=== PATIENT | male | born 1985 | race Two or more races ===

== ENCOUNTER 2016-11-01 15:31 | Emergency (ER) | payer SELFPAY ==
[~2016-11-01] VITALS: Ht 172.7 cm; Wt 74.8 kg
[2016-11-01 16:13] VITALS: BP 115/69
[2016-11-01] MEDS ORDERED: ROBITUSSIN COU118 M4 PO (16:21)
[2016-11-01] MEDS ORDERED: ZITHROMAX250 MG ORAL (16:21)
[2016-11-01 16:30] VITALS: BP 115/69
--- NOTE | 2016-11-01 23:02 | Emergency Room Report ---
History of Present Illness General Chief Complaint: Upper Respiratory Illness Source: Patient Present Illness HPI The pt is a 31 yo M with a Hx of HIV with unknown T cell count presenting for productive cough and subjective fever for one week. The pt denies sick contacts or recent travel. The pt denies other symptoms such as hemoptysis, weight loss, myalgia, neck stiffness, changes in vision, fatigue, RIDLEY, SOB, CP Allergies: Coded Allergies: ACETAMINOPHEN (Verified Allergy, Unknown, 09/26/16) Patient History Past Medical History: see triage record Pertinent Family History: none Reviewed Nursing Documentation: PMH: Agreed, PSxH: Agreed Nursing Documentation-PMH Hx Cardiac Problems: Yes - heart murmur, HIV + Review of Systems All Other Systems: negative except mentioned in HPI Physical Exam Vital Signs Date Time Temp Pulse Resp B/P Pulse Ox O2 Delivery O2 Flow Rate FiO2 11/01/16 15:59 99.0 81 17 115/69 97 Room Air Sp02 EP Interpretation: reviewed, normal General Appearance: no apparent distress, alert, GCS 15, non-toxic Head: normocephalic, atraumatic Eyes: bilateral eye PERRL, bilateral eye normal inspection ENT: hearing grossly normal, no angioedema, normal voice, TMs + canals normal, uvula midline, moist mucus membranes, nasal congestion, tonsillar swelling, pharyngeal erythema, tonsillar exudate Neck: full range of motion, supple/symm/no masses Respiratory: chest non-tender, lungs clear, normal breath sounds, speaking full sentences Cardiovascular #1: regular rate, rhythm, no edema Cardiovascular #2: 2+ carotid (R), 2+ carotid (L), 2+ radial (R), 2+ radial (L) , 2+ dorsalis pedis (R), 2+ dorsalis pedis (L) Gastrointestinal: normal bowel sounds, non tender, soft, non-distended, no guarding, no rebound Rectal: deferred Genitourinary: normal inspection, no CVA tenderness Musculoskeletal: back normal, gait/station normal, normal range of motion, non- tender Neurologic: alert, oriented x3, responsive, motor strength/tone normal, sensory intact, speech normal Psychiatric: judgement/insight normal, memory normal, mood/affect normal, no suicidal/homicidal ideation Reflexes: 3+ bicep (R), 3+ bicep (L), 3+ tricep (R), 3+ tricep (L), 3+ knee (R) , 3+ knee (L) Skin: normal color, no rash, warm/dry, well hydrated Lymphatic: no adenopathy Medical Decision Making PA Attestation Dr. Sorto is my supervising physician. Patient management was discussed with my supervising physician Diagnostic Impression: Primary Impression: Pharyngitis, acute ER Course The pt is a 31 yo M with a Hx of HIV with unknown T cell count presenting for productive cough and subjective fever for one week. Differential diagnosis include but not limited to pharyngitis, sinusitis, pneumonia, rhinitis PE: Vitals WNL. No apparent distress. No TTP over maxillary or frontal sinuses. Lungs CTA bilat. No wheezing. No accessory muscle use. Heart: RRR, no abnormal heart sounds Ears: external auditory canal clear. Non erythematous. Bilat TM intact. Cone of light present bilat. No bulging of TM. No serous fluid seen. + nasal D/C + anterior cervical lymphad Bilat tonsillar exudate. Uvula midline.Oropharynx is erythematous The pt will be DC'ed home with prescription for azithromycin and cough medication. ER precautions given Last Vital Signs Date Time Temp Pulse Resp B/P Pulse Ox O2 Delivery O2 Flow Rate FiO2 11/01/16 16:30 99.0 78 17 115/69 97 Room Air Status: improved Disposition: HOME, SELF-CARE Condition: Improved Scripts Guaifenesin/Dextromethorphan (Robitussin Cough-Chest Dm Liq) 118 Ml Liquid 10 ML PO Q4HR, #118 ML Prov: KALE ISABEL P.A. 11/01/16 Azithromycin* (ZITHROMAX*) 250 Mg Tablet 250 MG ORAL DAILY, #6 TAB 0 Refills Take two tables once daily for 1 day, then one tablet once daily for 4 days. Prov: TERZIAN,KALE P.A. 11/01/16 Referrals: NOT CHOSEN [facility]/MD,REFERRING (PCP) Patient Instructions: Pharyngitis Additional Instructions: I discussed my findings with the patient. All questions and concerns have been answered. Treatment and medication compliance have been addressed. I advised the patient that they need to follow up with PMD in 3-5 days. Return to ED if pain remains or worsens, cough worsens or remains, you notice blood in your sputum, you notice wheezing, you experience a fever, or if needed for any reason. Patient verbalized understanding of discharge instructions. KALE ISABEL Nov 01, 2016 23:02
== END 2016-11-01 16:25 | disposition home or self-care (01) ==
LOC: EMR 16:10
DX: J02.9 Acute pharyngitis, unspecified (principal); Z88.6 Allergy status to analgesic agent
CPT/HCPCS: 99284

== ENCOUNTER 2016-12-31 14:39 | Emergency (ER) | payer SELFPAY ==
[~2016-12-31] VITALS: Ht 170.2 cm; Wt 74.8 kg
[~2016-12-31 14:39] MED LIST: ROBITUSSIN COU118 M4 PO; ZITHROMAX250 MG ORAL
[2016-12-31] MEDS ORDERED: CELEXA20 MG ORAL (15:02)
[2016-12-31] MEDS ORDERED: ABILIFY15 MG ORAL (15:02)
--- NOTE | 2016-12-31 16:03 | Emergency Room Report ---
History of Present Illness General Chief Complaint: General Complaint Source: Patient Present Illness HPI This patient left prior to being seen/evaluated. Allergies: Coded Allergies: ACETAMINOPHEN (Verified Allergy, Unknown, 09/26/16) Physical Exam Vital Signs Date Time Temp Pulse Resp B/P Pulse Ox O2 Delivery O2 Flow Rate FiO2 12/31/16 14:59 98.1 82 16 120/80 99 Room Air Medical Decision Making PA Attestation Dr. Tanner is my supervising Physician whom patient management has been discussed with. ER Course This patient left prior to being seen/evaluated. Last Vital Signs Date Time Temp Pulse Resp B/P Pulse Ox O2 Delivery O2 Flow Rate FiO2 12/31/16 14:59 98.1 82 16 120/80 99 Room Air Disposition: LEFT W/OUT BEING SEEN Condition: Unknown Ibeth Stallworth Dec 31, 2016 16:03
[2016-12-31 22:47] VITALS: BP_SYST 1; BP_SYST 120; BP_DIAS 1; BP_DIAS 80
== END 2016-12-31 15:30 | disposition left against medical advice (07) ==
LOC: EMR 15:30
DX: Z53.21 Procedure and treatment not carried out due to patient leaving prior to being seen by health care provider (principal)
CPT/HCPCS: 99281

== ENCOUNTER 2017-06-07 20:31 | Emergency (ER) | payer OTHER ==
[~2017-06-07] VITALS: Ht 170.2 cm; Wt 74.8 kg
[~2017-06-07 20:31] MED LIST changes: +ABILIFY15 MG ORAL; +CELEXA20 MG ORAL
[2017-06-07 21:05] VITALS: BP 133/84
[2017-06-07] MEDS ORDERED: HYDROmorphone 1mg/ml Carpuject IM ONE (21:15)
[2017-06-07 21:31] LABS: APPEARANCE,URINE CLEAR; KETONES,URINE NEGATIVE (NEGATIVE); LEUKOCYTE ESTERASE ,URINE 1+ (NEGATIVE); NITRITE,URINE NEGATIVE (NEGATIVE); PH,URINE 5 (4.5-8.0); PROTEIN,URINE NEGATIVE (NEGATIVE); UROBILINOGEN,URINE NORMAL MG/DL (0.0-1.0)
--- NOTE | 2017-06-07 21:44 | Emergency Room Report ---
History of Present Illness General Chief Complaint: Headache Source: Patient Present Illness HPI This is a 31-year-old male with history of HIV. He is not on medication because he was noncompliant. His CD4 count is normal and his viral load is undetectable. Patient also has a history of migraine. He presents with chief complaint of headache. Onset today. Pain is severe. Similar to his previous headache but more severe. It starts around the eyes and radiate to his right occipital area. Has photophobia. Has nausea and vomiting. Better with his eyes closed. Worse with lights. Denies any other complaint. Pain is 10 out of 10. There is no fever or chills. No trauma. Allergies: Coded Allergies: ACETAMINOPHEN (Verified Allergy, Unknown, 09/26/16) Patient History Past Medical History: see triage record, old chart reviewed, CVA/TIA Past Surgical History: none Pertinent Family History: none Social History: Denies: smoking Immunizations: other Reviewed Nursing Documentation: PMH: Agreed, PSxH: Agreed Nursing Documentation-PMH Past Medical History: No History, Except For Hx Cardiac Problems: No - Left kidney only - congenital Hx Hypertension: No - HIV+ History Of Psychiatric Problem: Yes - Depression, Anxiety Hx Neurological Problems: No - Migraines Review of Systems Eye: Denies: blurred vision, eye pain ENT: Denies: ear pain, nose congestion, throat swelling Respiratory: Denies: cough, shortness of breath Cardiovascular: Denies: chest pain, palpitations Gastrointestinal: Denies: abdominal pain, diarrhea, nausea, vomiting Musculoskeletal: Denies: back pain, joint pain Skin: Denies: rash Neurological: Reports: headache, Denies: numbness Endocrine: Denies: increased thirst, increased urine Hematologic/Lymphatic: Denies: easy bruising All Other Systems: negative except mentioned in HPI Physical Exam Vital Signs Date Time Temp Pulse Resp B/P Pulse Ox O2 Delivery O2 Flow Rate FiO2 06/07/17 20:47 98.4 74 16 133/84 100 Room Air vitals normal Sp02 EP Interpretation: reviewed, normal General Appearance: well appearing, no apparent distress, alert Head: normocephalic, atraumatic Eyes: bilateral eye EOMI, bilateral eye PERRL ENT: hearing grossly normal, normal pharynx Neck: full range of motion, supple, no meningismus Respiratory: chest non-tender, lungs clear, normal breath sounds Cardiovascular #1: regular rate, rhythm, no murmur Gastrointestinal: normal bowel sounds, non tender, no mass, no organomegaly, no bruit, non-distended Musculoskeletal: back normal, gait/station normal, normal range of motion Psychiatric: mood/affect normal Skin: warm/dry Medical Decision Making Diagnostic Impression: Primary Impression: Headache Qualified Codes: R51 - Headache Additional Impressions: Methamphetamine abuse Noncompliance ER Course Present with headache. No evidence of meningitis, sepsis, bleed or neoplastic process. Pain is better. We'll discharge home. Last Vital Signs Date Time Temp Pulse Resp B/P Pulse Ox O2 Delivery O2 Flow Rate FiO2 06/07/17 21:05 98.4 74 16 133/84 100 Room Air Status: improved Disposition: HOME, SELF-CARE Condition: Stable Scripts Naproxen* (NAPROSYN*) 500 Mg Tablet 500 MG ORAL TWICE A DAY, #30 TAB Prov: KATELYNN VILLARREAL M.D. 06/07/17 Patient Instructions: General Headache Without Cause Additional Instructions: Stop using drugs. Followup with your DrAimee in 2-3 days. Return if symptom worsen. KATELYNN VILLARREAL M.D. Jun 07, 2017 21:44
[2017-06-07 21:52] LABS: BACTERIA,URINE FEW /HPF; RBC,URINE 0-2 /HPF (0 - 0)
[2017-06-07 22:00] VITALS: BP 105/77
[2017-06-07] MEDS ORDERED: NAPROSYN500 M1 ORAL (22:21)
[2017-06-07 22:29] VITALS: BP 105/77
== END 2017-06-07 22:29 | disposition home or self-care (01) ==
LOC: EMR 21:35
DX: R51 Headache (principal); F15.10 Other stimulant abuse, uncomplicated; Z91.14 Patient's other noncompliance with medication regimen; Z88.6 Allergy status to analgesic agent; Z86.73 Personal history of transient ischemic attack (TIA), and cerebral infarction without residual deficits
CPT/HCPCS: 80300; 81003; 96374; 99284; J1170